=== PATIENT | female | born 1945 | race Caucasian/White ===

== ENCOUNTER 2019-04-19 01:44 | Observation (INO) | payer MEDICARE ==
--- NOTE | 2019-04-18 11:43 | LEVENE H&P ---
DATE OF ADMISSION: April 19, 2019 IDENTIFICATION/CHIEF COMPLAINT Brittany is a 73-year old woman with a chief complaint of right knee pain. HISTORY OF PRESENT ILLNESS Brittany has a longstanding history of knee arthritis, progressively painful and debilitating and refractory to conservative care. Surgery is indicated to relieve symptoms after failure of nonoperative measures. PAST MEDICAL HISTORY 1. History of stroke, 2017, with some mild memory problems noted as residuals. 2. Irregular heartbeat. 3. Hypertension. 4. History of pulmonary embolus, which is questionable, in 2018. 5. Acid reflux disease. PAST SURGICAL HISTORY 1. Hand tendon release. 2. Cholecystectomy. 3. Tonsillectomy. ALLERGIES She reports no current drug allergies. She had a mild reaction to penicillin as a child. CURRENT MEDICATIONS 1. Losartan/hydrochlorothiazide 100/12.5 mg p.o. q.d. 2. Pantoprazole 40 mg p.o. b.i.d. 3. Amlodipine 10 mg p.o. q.d. 4. Celebrex 100 mg p.o. b.i.d. FAMILY HISTORY Noncontributory. SOCIAL HISTORY Negative for tobacco. She drinks rare beer but denies other alcohol use. REVIEW OF SYSTEMS Negative. PHYSICAL EXAMINATION GENERAL: This is a healthy female. She appears stated age. HEENT: Normocephalic, atraumatic. NECK: Supple. LUNGS: Clear. HEART: Regular. ABDOMEN: Soft. ORTHOPEDIC EXAMINATION Right knee has crepitus and effusion present. She is stiffened on range. Extensor function is intact. Knee is grossly stable. Skin condition is good. Calves are nontender. Neurovascular function is intact. Radiographs demonstrate end-stage knee arthritis. ASSESSMENT Right knee end-stage degenerative joint disease, progressively painful and debilitating, refractory to conservative care. PLAN Per patient's request, we are going to proceed with total knee arthroplasty. The nature of the procedure, the risks, benefits, the anticipated rehabilitative course were reviewed. Risks include, but are not limited to, , major medical or anesthetic complication, infection, neurovascular injury, blood transfusion, stiffness, scarring, fracture, tendon rupture, instability, implant loosening, migration or failure, persistent or recurrent pain or symptoms, need for additional surgery and other unforeseen. She understands and wishes to proceed. A signed permit is placed in the chart. No guarantees are given or implied. [facility]
[2019-04-18 13:46] LABS: INR 0.91
[2019-04-19] VITALS (13 sets, daily range): BP systolic 36–139; BP diastolic 23–97
[~2019-04-19] VITALS: Ht 149.9 cm; Wt 56.2 kg
[~2019-04-19 01:44] MED LIST: AMLO-127 PO; LOSA-57 PO; PANT40TA65 PO
[2019-04-19] MEDS ORDERED: LIDOCAINE MPF 1% 5 ML VIAL ONE (11:54)
[2019-04-19] MEDS ORDERED: ONDANSETRON 4 MG/2 ML VIAL ONE (11:54)
[2019-04-19] MEDS ORDERED: PROPOFOL EMUL(*) 10MG/ML 20 ML 20 ML ONE (11:54)
[2019-04-19] MEDS ORDERED: DEXAMETHASONE SOD 4 MG/ML VIAL ONE (11:55)
[2019-04-19] MEDS ORDERED: fentaNYL CITR 100 MCG/2 ML AMP ONE (11:56)
[2019-04-19] MEDS ORDERED: NORMOSOL R SOLN(*) 1000 ML BAG 1,000 ML IV PRN ×2 (13:15→16:35)
[2019-04-19] MEDS ORDERED: ROPIVACAINE/EPI/CLONIDINE/KET 50 ML SYRINGE INJ ONE (13:15)
[2019-04-19] MEDS ORDERED: PREGABALIN 75 MG CAPSULE PO ONE (13:15)
[2019-04-19] MEDS ORDERED: MIDAZOLAM 2 MG/2 ML VIAL IVP PRN (13:15)
[2019-04-19] MEDS ORDERED: ACETAMINOPHEN 500 MG TAB PO ONE (13:15)
[2019-04-19] MEDS ORDERED: CLINDAMYCIN(*) 900 MG/NS 50 ML 50 ML IVPB ONE (13:15)
[2019-04-19] MEDS ORDERED: LIDOCAINE/SOD BICARB 8.4% SYR ID ONE (13:15)
[2019-04-19] MEDS ORDERED: TRANEXAMIC AC 1000 MG/10ML SDV 1,000 MG in DEXTROSE 5% 50 ML BAG 50 ML IV ONE (13:15)
[2019-04-19] MEDS ORDERED: CELECOXIB 200 MG CAP PO ONE (13:15)
[2019-04-19] MEDS ORDERED: VANCOMYCIN 1 GM VIAL ONE (13:45)
[2019-04-19] MEDS ORDERED: METOCLOPRAMIDE 10 MG/2 ML SDV ONE (14:06)
[2019-04-19] MEDS ORDERED: ePHEDrine 25 MG/5 ML DISP.SYR IVP ONE (14:35)
[2019-04-19] MEDS ORDERED: FLUSH 10 ML SYR IVP PRN (16:35)
[2019-04-19] MEDS ORDERED: DIAZEPAM 5 MG TAB PO PRN (16:35)
[2019-04-19] MEDS ORDERED: MAGNESIUM HYDROXIDE* 30ML UDCP PO PRN (16:35)
[2019-04-19] MEDS ORDERED: ZOLPIDEM TARTRATE 5 MG TAB PO PRN (16:35)
[2019-04-19] MEDS ORDERED: PROMETHAZINE 25 MG/ML 1 ML AMP IVP PRN (16:35)
[2019-04-19] MEDS ORDERED: BENZOCAINE/MENTHOL 1 EACH LOZG PO PRN (16:35)
[2019-04-19] MEDS ORDERED: diphenhydrAMINE 50 MG/ML VIAL IVP PRN (16:35)
[2019-04-19] MEDS ORDERED: diphenhydrAMINE 25 MG CAP PO PRN (16:35)
[2019-04-19] MEDS ORDERED: BISACODYL 10 MG SUPP PR PRN (16:35)
[2019-04-19] MEDS ORDERED: ACETAMINOPHEN 325 MG TAB PO PRN (16:35)
--- NOTE | 2019-04-19 17:35 | RADIOLOGY IMAGING REPORT ---
FACILITY: [facility] [place] PATIENT NAME: Brittany Dowd : 1945 MR: [id number] V: [id number] EXAM DATE: ORDERING PHYSICIAN: JUDITH BHAKTA TECHNOLOGIST: Location: [facility] Patient: Brittany Dowd : 1945 Visit/Account:[id number] Date of Sevice: 04/19/2019 KNEE LIMITED RIGHT Indication: Postop Comparison: None available Findings: There is been placement of a three part TKA. Components appear well seated and in neutral alignment. IMPRESSION: 1. Normal postoperative appearance of right TKA Report Dictated By: Leighton Bazan at 04/19/2019 5:26 PM Report E-Signed By: Leighton Bazan at 04/19/2019 5:27 PM WSN:[email or web address]
[2019-04-19] MEDS: CELECOXIB 200 MG CAP PO SCH (18:09)
[2019-04-19] MEDS: APAP/HYDROCODONE 325/7.5 TAB PO PRN (18:45)
--- NOTE | 2019-04-19 20:21 | Hospitalist Consultation ---
History of Present Illness Requesting Physician Dr. Bhakta Reason for Consult Hypertension History of Present Illness This patient was admitted for knee replacement surgery. It is reported that the surgery went well and was without complication. History Problems: (1) Essential hypertension Home Meds Reported Medications Pantoprazole Sodium (PANTOPRAZOLE SODIUM) 40 Mg Tablet.dr, 40 MG PO BID, TAB.SR 04/13/19 Amlodipine Besylate (AMLODIPINE BESYLATE) 10 Mg Tablet, 1 TAB PO QDAY, TAB 04/13/19 Losartan/Hydrochlorothiazide (LOSARTAN-HCTZ 100-12.5 MG TAB) Unknown Strength Tablet, PO QDAY 04/13/19 Allergies: Coded Allergies: Penicillins (Verified Allergy, Unknown, 04/13/19) Patient History: FH: Alzheimers disease MOTHER Hx Smoking: No Caffeine Intake: Coffee, Tea Caffeine/Cups Per Day: 3 CPD Hx Alcohol Use: Yes Hx Substance Use Disorder: No Review of Systems All Systems Reviewed/Normal: Yes Exam Vital Signs Vital Signs Date Time Temp Pulse Resp B/P (MAP) Pulse Ox O2 Delivery O2 Flow Rate FiO2 04/19/19 18:15 88 104/72 (83) 95 04/19/19 17:35 97.0 18 Nasal Cannula 2.0 Neuro: No Gross deficits Eyes: PERRLA Cardiovascular: Regular Rate and Rhythm Respiratory: Clear to Auscultation Assessment and Plan Problems: (1) S/P knee replacement Assessment & Plan: She is on aspirin prophylaxis. (2) Essential hypertension Assessment & Plan: She is on chronic treatment with losartan and amlodipine. Both medications have been ordered with hold parameters. Copies to: JUDITH BHAKTA MD ; Venous Thromboembolism Antithrombotics Is Pt On Any Antithrombotics?: No Exam Sepsis Risk: No Definite Risk GIORGIO CHAVEZ DO Apr 19, 2019 20:21
[2019-04-19] MEDS: PANTOPRAZOLE SOD 40 MG TABEC PO SCH (20:35)
[2019-04-19] MEDS ORDERED: NS(*) 0.9% 250 ML BAG 250 ML ONE (22:14)
[2019-04-19] MEDS: CLINDAMYCIN(*) 900 MG/NS 50 ML 50 ML IVPB SCH (22:37)
[2019-04-20] VITALS: BP 92/53
[2019-04-20 01:00] VITALS: BP 108/54
[2019-04-20] MEDS: APAP/HYDROCODONE 325/7.5 TAB PO PRN ×4 (02:00→13:30)
[2019-04-20] MEDS: CLINDAMYCIN(*) 900 MG/NS 50 ML 50 ML IVPB SCH (06:05)
--- NOTE | 2019-04-20 06:32 | OPERATIVE REPORT 1 ---
EVENT DATE: April 19, 2019 SURGEON: Sam Bermeo MD ANESTHESIOLOGIST: Cal Mace MD ANESTHESIA: General plus spinal. MEDICAL REIMBURSEMENT MANAGER: JOE Leija PREOPERATIVE DIAGNOSIS Right knee degenerative joint disease. POSTOPERATIVE DIAGNOSIS Right knee degenerative joint disease. PROCEDURE PERFORMED Right total knee arthroplasty. ESTIMATED BLOOD LOSS Minimal. DRAINS None. SPECIMENS None. COMPLICATIONS None apparent. TOURNIQUET TIME 42 minutes. IMPLANTS USED The [employer] Triathlon knee system with a 1 right PS femur, a 2 Melrude standard tibial baseplate, a 31 mm Melrude symmetric all-polyethylene patellar button, 13 mm PS tibial tray liner. Polyethylene is X3. INDICATIONS FOR PROCEDURE Brittany is a 74-year-old woman with intractable pain and disability related to end-stage knee arthritis. Surgery is indicated to relieve symptoms after failure of nonoperative measures. DESCRIPTION OF PROCEDURE Patient was taken to the operating room and placed supine on the operating table. General anesthesia was induced. Antibiotics were administered IV. Spinal block was administered preoperatively by the anesthesiologist. The right lower extremity was prepped and draped in the usual sterile fashion for knee arthroplasty. The limb was exsanguinated with an Esmarch bandage, tourniquet inflated to 250 mmHg. A midline longitudinal incision was made, carried down through the skin and subcutaneous tissue to the extensor mechanism. Full-thickness flap was developed far enough medially to allow medial parapatellar arthrotomy to be performed. Patella was everted. Knee was brought into flexed position. Fat pad, anterior horn of the menisci, and the cruciate ligaments were debrided. Subperiosteal medial release was initiated in a titrated fashion to start to balance the knee. Step drill was used to enter distal femur. A [id number] alignment guide was used to engage the isthmus. Cut was set for 6 degrees valgus relative to the anatomic axis. A 10 mm resection block was applied and pinned. Cut was made with an oscillating saw. AP sizer guide was applied. The distal femoral cut was measured for 3 degrees external rotation relative to the posterior condyles. Size 1 is optimal without risk of notching. A four-in-one cutting block was applied. Anterior, posterior, posterior chamfer, and anterior chamfer cuts were made respectively. PS block was applied. Center, medial, and lateral bone was removed from the box. Trial femur has nice [id number] fit. Attention was turned to tibial preparation. Extramedullary guide is applied, positioned for varus and valgus, posterior slope and rotation. This is set to resect 9 mm from the relatively intact lateral tibial plateau. It is dropped down a millimeter or two to ensure an adequate cut. Block is pinned. Extramedullary alignment check is made. Cut is made with an oscillating saw. The 2 baseplate provides optimal bony coverage without soft tissue overhang after osteophyte removal. This is inserted along with a trial liner and a trial femur. The knee is brought to full extension. Patella is taken from a starting thickness of 22 mm to residual of 14 with patellar clamp and oscillating saw. A 31 provides optimal bony coverage without soft tissue overhang. Lug holes are drilled. Patella tracks nicely with a no-touch technique. After fine-tuning the soft tissue balance with the gaps, the surfaces are lavaged. The final tibial position is determined for rotation and translation, and the boss is reamed and fin is punched. Surfaces are lavaged. A mix of methacrylate is made and components cemented in a single stage. Once the cement is fully polymerized, tourniquet is deflated, hemostasis assured. The wound was copiously lavaged, and the 13 PS tibial tray liner fills up the gap ideally, allowing the knee to drop to full extension without hyperextension, providing optimal soft tissue tension and stability. After cleaning and lavaging the tray, the liner is locked into the baseplate, joint is reduced, and arthrotomy is closed in flexion with #2 Ethibond subcu with 3-0 Vicryl in the skin, with a ZipLine closure, Xeroform, 4x4s, dry sterile dressing, and a compression wrap. Patient is awakened from anesthesia and taken to the recovery room in stable condition, having tolerated the procedure well. Plan is for standard TKA rehab protocol. [facility]
[2019-04-20 08:18] VITALS: BP 138/58
[2019-04-20] MEDS ORDERED: HYDR-654 PO (08:19)
[2019-04-20] MEDS ORDERED: ASPI-757 PO (08:22)
[2019-04-20] MEDS: PANTOPRAZOLE SOD 40 MG TABEC PO SCH (08:34)
[2019-04-20] MEDS: CELECOXIB 200 MG CAP PO SCH (08:34)
[2019-04-20] MEDS ORDERED: amLODIPine BESYL(*) 5 MG TAB PO SCH (09:00)
[2019-04-20] MEDS ORDERED: LOSARTAN POTASSIUM 50 MG TAB PO SCH (09:00)
[2019-04-20] MEDS ORDERED: ASPIRIN 325 MG TAB PO SCH (09:00)
--- NOTE | 2019-04-20 09:35 | Hospitalist Progress Note ---
Subjective Progress Notes Subjective She was admitted s/p knee replacement. She denies any complaints this morning. She had no acute events overnight. Patient Complains of: Cardiovascular: No: Chest Pain Respiratory: No: Shortness of Breath Physical Exam Vital Signs Date Time Temp Pulse Resp B/P (MAP) Pulse Ox O2 Delivery O2 Flow Rate FiO2 04/20/19 08:26 89 04/20/19 08:18 97.9 17 138/58 (84) Nasal Cannula 2.0 04/19/19 22:30 87 Intake and Output 04/20/19 01:03 Intake Total 2155 ml Balance 2155 ml Intake Oral 800 ml IV Total 1355 ml # Voids 1 General Appearance: Alert, Awake, No Acute Distress, Afebrile Neuro: No Gross deficits Cardiovascular: Regular Rate and Rhythm Respiratory: No Respiratory Distress, Clear to Auscultation GI: Soft and Non-Tender Psych: Alert & Oriented X3, Appropriate Mood & Affect Assessment and Plan Problems: (1) S/P knee replacement Status: Acute Assessment & Plan: She is on aspirin prophylaxis. (2) Essential hypertension Status: Chronic Assessment & Plan: She is on chronic treatment with losartan and amlodipine. Both medications have been ordered with hold parameters. Exam Sepsis Risk: No Definite Risk Problem Qualifiers (1) S/P knee replacement: Laterality: right Qualified Codes: Z96.651 - Presence of right artificial knee joint BAN JASMINE SCREW MACHINE TENDER Apr 20, 2019 09:35
--- NOTE | 2019-04-20 09:56 | NUR ---
Physical Therapy Impression PT eval completed and pt able to meet goals with initial visit. No further visits planned. Physical Therapy Goals PT goals met with initial visit; no further visits planned 1. Pt to be SBA/CGA for transfers and bed mobility 2. Pt to be SBA/CGA for ambulation with least restrictive device x 100' 3. Pt to complete up/down platform step to simulate entry to home with SBA/CGA 4. Pt/CG to demo understanding of self progression of flexion with CPM. Patient's Goals
[2019-04-20 10:16] VITALS: BP 124/81
[2019-04-20 12:00] VITALS: Ht 149.9 cm; Wt 56.2 kg
== END 2019-04-20 10:15 | disposition home or self-care (01) ==
LOC: OR 01:44 → MED 17:20
PROVIDERS: ADMIT Orthopaedic Surgery; ATTEND Orthopaedic Surgery
DX: M17.11 Unilateral primary osteoarthritis, right knee (principal); I10 Essential (primary) hypertension; Z86.73 Personal history of transient ischemic attack (TIA), and cerebral infarction without residual deficits; Z79.01 Long term (current) use of anticoagulants; Z86.711 Personal history of pulmonary embolism
CPT/HCPCS: 27447; 36415; 73560; 85610; 86850; 86900; 86901; 94667; 97116; 97161; 97530; A9270; C1713; C1776; G0378; J1100; J2001; J2250; J2405; J2704; J2765; J3010; J3370; J3490; J7050; J7060